=== PATIENT | male | born 1955 | race Caucasian/White ===

== ENCOUNTER 2022-06-25 06:20 | Emergency (ER) | payer MEDICARE, MEDICAID ==
[2022-06-25] MEDS ORDERED: Morphine 2 MG/ML SYRINGE IVPUSH ONE (06:28)
[2022-06-25] MEDS ORDERED: Aspirin 81 MG Tab.Chew PO ONE (06:30)
[2022-06-25] MEDS ORDERED: Heparin Sodium 5,000 Units/ML Vial IVPUSH ONE (06:31)
[2022-06-25] MEDS ORDERED: Heparin Sodium/0.45% NaCl 500 ML ONE (06:40)
[2022-06-25] MEDS ORDERED: Heparin Sodium/0.45% NaCl 500 ML IV SCH (07:00)
[2022-06-25] MEDS ORDERED: LORazepam 2 MG/ML Syringe IVPUSH ONE ×3 (07:09→08:15)
[2022-06-25] MEDS ORDERED: Tenecteplase 50 MG Kit ONE (07:16)
[2022-06-25] MEDS ORDERED: Potassium Chloride 10 MEQ Tab.ER PO ONE (07:30)
[2022-06-25] MEDS ORDERED: Tenecteplase 50 MG Kit IV ONE (07:40)
[2022-06-25] MEDS ORDERED: Clopidogrel 75 MG Tab PO ONE (07:43)
[2022-06-25] MEDS ORDERED: LORazepam 2 MG/ML Syringe ONE (07:48)
[2022-06-25 08:22] LABS: PTT,PARTIAL THROMBOPLSTIN TIME 168.1 SEC (23.2-32.3)
[2022-06-25 13:03] VITALS: BP 142/98; PULSE 90
== END 2022-06-25 09:00 | disposition left against medical advice (07) ==
LOC: CC.ED 06:20
DX: I21.21 ST elevation (STEMI) myocardial infarction involving left circumflex coronary artery (principal); Z88.0 Allergy status to penicillin; Z88.1 Allergy status to other antibiotic agents
CPT/HCPCS: 36415; 71045; 80053; 83735; 84484; 85025; 85610; 85730; 93005; 93010; 99285; A9270-GY; J1644; J2060; J2270; J3101

== ENCOUNTER 2022-06-25 13:03 | Emergency (ER) | payer MEDICARE, MEDICAID ==
[2022-06-25] MEDS ORDERED: Metoprolol Tartrate 5 MG/5 ML SDV IVPUSH ONE ×2 (13:30→13:56)
[2022-06-25] MEDS ORDERED: LORazepam 2 MG/ML Syringe IVPUSH ONE (13:33)
[2022-06-25] MEDS ORDERED: Heparin Sodium/0.45% NaCl 500 ML IV SCH (13:45)
[2022-06-25 14:04] LABS: PTT,PARTIAL THROMBOPLSTIN TIME 24.7 SEC (23.2-32.3)
[2022-06-25] MEDS ORDERED: Metoprolol Tartrate 50 MG Tab PO ONE (14:09)
[2022-06-25 14:17] VITALS: BP 144/94; PULSE 66
== END 2022-06-25 14:21 ==
LOC: CC.ED 13:03
DX: I21.21 ST elevation (STEMI) myocardial infarction involving left circumflex coronary artery (principal); I25.2 Old myocardial infarction; Z88.0 Allergy status to penicillin; Z88.1 Allergy status to other antibiotic agents
CPT/HCPCS: 36415; 71045; 80053; 83735; 83880; 84484; 85025; 85027; 85610; 85730; 93005; 93010; 96365; 96375; 99285; 99285-25; A9270-GY; J1644; J2060; J2270; J3101; J3490